=== PATIENT | female | born 1995 | race Caucasian/White ===

== ENCOUNTER 2021-01-03 16:27 | Emergency (ER) | payer SELFPAY ==
[2021-01-03 17:05] LABS: Urine Blood 2+ (NEG); Urine Glucose NEGATIVE (NEG); Urine Protein 1+ (NEG); Urine Specific Gravity 1.025 (1.005-1.030)
[2021-01-03 17:19] LABS: Absolute Lymphocytes (CBC) 2.1 K/uL (0.7-4.9); Basophils % 0.6 % (0-1.3); Hematocrit 40.9 % (36.0-45.0); Lymphocytes % 26.8 % (15.3-44.8); MPV 8.6 fL (7.6-11.3); RBC Red Blood Cell Count 4.54 M/uL (3.86-4.86)
[2021-01-03] MEDS ORDERED: NA CHLORIDE 0.9% 1,000 ML ONE (17:27)
[2021-01-03] MEDS ORDERED: FAMOTIDINE 20 MG/2 ML VIAL IV ONE (17:27)
[2021-01-03] MEDS ORDERED: ONDANSETRON 4 MG/2 ML VIAL ONE (17:27)
[2021-01-03 17:30] LABS: ALT/SGPT 32 U/L (12-78); AST/SGOT 20 U/L (15-37); Albumin 4.1 g/dL (3.4-5.0); Alkaline Phosphatase 79 U/L (45-117); BUN Blood Urea Nitrogen 14 mg/dL (7-18); Bicarbonate 28 mmol/L (21-32); Bilirubin Direct < 0.1 mg/dL (0-0.2); Bilirubin Total 0.2 mg/dL (0.2-1.0); Glucose Level 90 mg/dL (74-106); Lipase 311 U/L (73-393); Potassium 3.6 mmol/L (3.5-5.1); Protein, Total 8.2 g/dL (6.4-8.2); Sodium Level 142 mmol/L (136-145)
[2021-01-03 18:42] LABS: SARS-COV-2 RT PCR POSITIVE (NEGATIVE)
--- NOTE | 2021-01-03 18:50 | EDPHYS ---
Physician Documentation [facility] Name: Sabina Dumont Age: 25 yrs Sex: Female : 1995 Arrival Date: 01/03/2021 Time: 16:29 Bed 19 Private MD: ED Physician Milton Payne HPI: 01/03 16:55 This 25 yrs old Female presents to ER via Ambulatory with complaints of cp Nausea/Vomiting/Diarrhea, Vision Problem. 16:55 The patient presents to the emergency department with nausea, that is mild, vomiting, cp that is intermittent, 2 times today, diarrhea, that is intermittent. Onset: The symptoms/episode began/occurred today. Possible causes: unknown. Associated signs and symptoms: Pertinent positives: sweats. 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 - Social history:: Smoking status: Patient reports the use of cigarette tobacco products, Reported history of juuling and/or vaping. ROS: 17:00 Constitutional: Negative for body aches, chills, fever, poor PO intake. cp 17:00 Eyes: Negative for discharge, pain, vision loss. cp 17:00 ENT: Negative for drainage from ear(s), ear pain, sore throat, difficulty swallowing, difficulty handling secretions. 17:00 Cardiovascular: Negative for chest pain, edema, palpitations. 17:00 Respiratory: Negative for cough, shortness of breath, wheezing. 17:00 Abdomen/GI: Positive for nausea, vomiting, and diarrhea, Negative for abdominal pain, constipation, hematemesis, black/tarry stool. 17:00 Neuro: Negative for altered mental status, headache, numbness, syncope, weakness. 17:00 All other systems are negative. Exam: 17:10 Constitutional: The patient appears in no acute distress, alert, awake, comfortable, cp non-toxic, well developed, well nourished. 17:10 Head/Face: Normocephalic, atraumatic. cp 17:10 Eyes: Periorbital structures: appear normal, Conjunctiva: normal, no exudate, no injection, Sclera: no appreciated abnormality, Lids and lashes: appear normal, bilaterally. 17:10 ENT: External ear(s): are unremarkable, Nose: is normal, Mouth: Lips: moist, Oral mucosa: moist, Posterior pharynx: Airway: no evidence of obstruction, patent. 17:10 Neck: ROM/movement: is normal, is supple, without pain, no range of motions limitations. 17:10 Chest/axilla: Inspection: normal, Palpation: is normal, no crepitus, no tenderness. 17:10 Cardiovascular: Rate: tachycardic, Rhythm: regular. 17:10 Respiratory: the patient does not display signs of respiratory distress, Respirations: normal, no use of accessory muscles, no retractions, labored breathing, is not present, Breath sounds: are clear throughout, no decreased breath sounds, no stridor, no wheezing. 17:10 Abdomen/GI: Inspection: abdomen appears normal, Bowel sounds: active, all quadrants, Palpation: abdomen is soft and non-tender, in all quadrants. 17:10 Back: CVA tenderness, is absent. 17:10 Skin: no rash present. 17:10 Neuro: Orientation: to person, place \T\ time. Mentation: is normal, Motor: moves all fours, strength is normal. Vital Signs: 16:38 BP 127 / 85; Pulse 113; Resp 17; Temp 98.2; Pulse Ox 99% ; Weight 79.38 kg; Height 5 jl7 ft. 3 in. (160.02 cm); Pain 0/10; 17:56 BP 110 / 67; Pulse 78; Resp 17 S; Pulse Ox 100% on R/A; jd3 19:02 BP 101 / 54; Pulse 75; Resp 17 S; Pulse Ox 100% on R/A; jd3 16:38 Body Mass Index 31.00 (79.38 kg, 160.02 cm) jl7 MDM: 16:48 Patient medically screened. cp 17:00 Differential diagnosis: gastritis, viral gastroenteritis, gastroenteritis, dehydration, cp electrolyte abnormality. 18:48 Data reviewed: vital signs, nurses notes, lab test result(s), and as a result, I will cp discharge patient. 18:48 Counseling: I had a detailed discussion with the patient and/or guardian regarding: the cp historical points, exam findings, and any diagnostic results supporting the discharge/admit diagnosis, lab results, to return to the emergency department if symptoms worsen or persist or if there are any questions or concerns that arise at home. Response to treatment: the patient's symptoms have markedly improved after treatment, and as a result, I will discharge patient. 01/03 16:50 Order name: Basic Metabolic Panel; Complete Time: 17:37 cp 01/03 17:37 Interpretation: Normal except: CL 109; GFR 81. cp 01/03 16:50 Order name: CBC with Diff; Complete Time: 17:37 cp 01/03 16:50 Order name: Hepatic Function; Complete Time: 17:37 cp 01/03 16:50 Order name: Lipase; Complete Time: 17:37 cp 01/03 16:50 Order name: IV Saline Lock; Complete Time: 17:06 cp 01/03 16:50 Order name: Labs collected and sent; Complete Time: 17:06 cp 01/03 16:53 Order name: Urine Dipstick--Ancillary (enter results); Complete Time: 17:37 eb 01/03 16:53 Order name: Urine --Ancillary (enter results); Complete Time: 17:37 eb 01/03 18:42 Order name: COVID-19/FLU A+B; Complete Time: 18:48 EDMS 01/03 16:50 Order name: Urine Test (obtain specimen); Complete Time: 16:53 cp 01/03 16:50 Order name: Urine Dipstick-Ancillary (obtain specimen); Complete Time: 16:53 cp 01/03 17:38 Order name: PO challenge; Complete Time: 17:47 cp Administered Medications: 17:19 Drug: Pepcid 20 mg Route: IVP; Site: right antecubital; jd3 18:00 Follow up: Response: No adverse reaction jd3 17:19 Drug: Zofran (Ondansetron) 4 mg Route: IVP; Site: right antecubital; jd3 18:00 Follow up: Response: No adverse reaction jd3 17:19 Drug: NS 0.9% 1000 ml Route: IV; Rate: 1 bolus; Site: right antecubital; jd3 18:00 Follow up: Response: No adverse reaction; IV Status: Completed infusion jd3 Disposition: 19:00 Chart complete. cp 01/04 07:01 Co-signature as Attending Physician, Milton Payne MD. rn Disposition: 01/03/21 18:49 Discharged to Home. Impression: Nausea and vomiting, Diarrhea, unspecified, Coronavirus infection, unspecified. - Condition is Stable. - Discharge Instructions: Food Choices to Help Relieve Diarrhea, Adult, Diarrhea, Adult, Nausea and Vomiting, Adult, COVID-19. - Prescriptions for Zofran 4 mg Oral Tablet - take 1 tablet by ORAL route every 12 hours As needed; 20 tablet. - Medication Reconciliation Form, Thank You Letter, Antibiotic Education, Prescription Opioid Use, Work release form form. - Follow up: Private Physician; When: 1 - 2 days; Reason: Worsening of condition. - Problem is new. - Symptoms have improved. 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 EDGA EDMS 17:37 16:51 Influenza Screen (A \T\ B)+BA.LAB.BRZ ordered. EDGA EDMS 18:39 18:39 Data reviewed: vital signs, nurses notes, lab test result(s), and as a result, I will discharge patient, cp 19:31 18:49 01/03/2021 18:49 Discharged to Home. Impression: Nausea and vomiting; Diarrhea, ll2 unspecified; Coronavirus infection, unspecified. Condition is Stable. Discharge Instructions: COVID-19. Prescriptions for Zofran 4 mg Oral Tablet - take 1 tablet by ORAL route every 12 hours As needed; 20 tablet. and Forms are Medication Reconciliation Form, Thank You Letter, Antibiotic Education, Prescription Opioid Use. Follow up: Private Physician; When: 1 - 2 days; Reason: Worsening of condition. Problem is new. Symptoms have improved. cp
--- NOTE | 2021-01-03 18:50 | ER ---
Nurse's Notes [facility] Name: Sabina Dumont Age: 25 yrs Sex: Female : 1995 Arrival Date: 01/03/2021 Time: 16:29 Bed 19 Private MD: Diagnosis: Nausea and vomiting;Diarrhea, unspecified;Coronavirus infection, unspecified Presentation: 01/03 16:38 Chief complaint: Patient states: N/V/D x 2 hours, reports leaving a tampon in from 1500 jl7 Tuesday until 0830 this morning, denies abdominal pain. Coronavirus screen: Client denies travel out of the [place] in the last 14 days. diarrhea, vomiting. Client presents with at least one sign or symptom that may indicate coronavirus-19. Standard/surgical mask placed on the client. Provider contacted for isolation considerations. Ebola Screen: No symptoms or risks identified at this time. Initial Sepsis Screen: Does the patient meet any 2 criteria? No. Patient's initial sepsis screen is negative. Does the patient have a suspected source of infection? No. Patient's initial sepsis screen is negative. Risk Assessment: Do you want to hurt yourself or someone else? Patient reports no desire to harm self or others. Onset of symptoms was January 03, 2021 at 15:00. Care prior to arrival: None. 16:38 Method Of Arrival: Ambulatory [facility] 16:38 Acuity: HENRY 3 jl7 Triage Assessment: 16:41 General: Appears in no apparent distress. uncomfortable, Behavior is cooperative, jl7 anxious. Pain: Denies pain. GI: Reports diarrhea, nausea, vomiting. 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 - Social history:: Smoking status: Patient reports the use of cigarette tobacco products, Reported history of juuling and/or vaping. Screenin:20 Abuse screen: Denies threats or abuse. Nutritional screening: No deficits noted. jd3 Tuberculosis screening: No symptoms or risk factors identified. Fall Risk Ambulatory Aid- None/Bed Rest/Nurse Assist (0 pts). Gait- Normal/Bed Rest/Wheelchair (0 pts) Mental Status- Oriented to own ability (0 pts). Total Boudreaux Fall Scale indicates No Risk (0-24 pts). Assessment: 16:40 General: Appears in no apparent distress. uncomfortable, Behavior is calm, cooperative, jd3 appropriate for age. Pain: Complains of pain in abdomen Quality of pain is described as aching. Neuro: Level of Consciousness is awake, alert, obeys commands, Oriented to person, place, time, situation. Cardiovascular: Denies chest pain, Capillary refill < 3 seconds Patient's skin is warm and dry. Respiratory: Airway is patent Respiratory effort is even, unlabored, Respiratory pattern is regular, symmetrical, Denies cough, shortness of breath. GI: Abdomen is flat, non-distended, Abd is soft and non tender X 4 quads. Reports diarrhea, nausea. : No signs and/or symptoms were reported regarding the genitourinary system. Denies burning with urination, cramping discharge. EENT: No signs and/or symptoms were reported regarding the EENT system. Derm: Skin is intact, Skin is dry, Skin is normal, Skin temperature is warm. Musculoskeletal: Circulation, motion, and sensation intact. Range of motion: intact in all extremities. 17:56 Reassessment: Patient appears in no apparent distress at this time. Patient and/or jd3 family updated on plan of care and expected duration. Pain level reassessed. Patient is alert, oriented x 3, equal unlabored respirations, skin warm/dry/pink. pt tolerating PO fluids Patient states feeling better. 19:02 Reassessment: Patient appears in no apparent distress at this time. Patient and/or jd3 family updated on plan of care and expected duration. Pain level reassessed. Patient is alert, oriented x 3, equal unlabored respirations, skin warm/dry/pink. Patient states feeling better. Vital Signs: 16:38 BP 127 / 85; Pulse 113; Resp 17; Temp 98.2; Pulse Ox 99% ; Weight 79.38 kg; Height 5 jl7 ft. 3 in. (160.02 cm); Pain 0/10; 17:56 BP 110 / 67; Pulse 78; Resp 17 S; Pulse Ox 100% on R/A; jd3 19:02 BP 101 / 54; Pulse 75; Resp 17 S; Pulse Ox 100% on R/A; jd3 16:38 Body Mass Index 31.00 (79.38 kg, 160.02 cm) jl7 ED Course: 16:29 Patient arrived in ED. ag5 16:38 Cam Moon, RN is Primary Nurse. jd3 16:40 Triage completed. jl7 16:41 Nikunj Fernandez PA is PHCP. cp 16:41 Milton Payne MD is Attending Physician. cp 16:41 Arm band placed on right wrist. jl7 17:00 No provider procedures requiring assistance completed. Inserted saline lock: 20 gauge jd3 in right antecubital area, using aseptic technique. Blood collected. 17:20 Patient has correct armband on for positive identification. Placed in gown. Bed in low jd3 position. Call light in reach. Side rails up X 1. Pulse ox on. NIBP on. 19:30 IV discontinued, intact, bleeding controlled, No redness/swelling at site. Pressure jd3 dressing applied. Administered Medications: 17:19 Drug: Pepcid 20 mg Route: IVP; Site: right antecubital; jd3 18:00 Follow up: Response: No adverse reaction jd3 17:19 Drug: Zofran (Ondansetron) 4 mg Route: IVP; Site: right antecubital; jd3 18:00 Follow up: Response: No adverse reaction jd3 17:19 Drug: NS 0.9% 1000 ml Route: IV; Rate: 1 bolus; Site: right antecubital; jd3 18:00 Follow up: Response: No adverse reaction; IV Status: Completed infusion jd3 Outcome: 18:49 Discharge ordered by . cp 19:30 Discharged to home ambulatory, with family. jd3 19:30 Condition: stable 19:30 Discharge instructions given to patient, Instructed on discharge instructions, follow up and referral plans. medication usage, Demonstrated understanding of instructions, follow-up care, medications, Prescriptions given X 1. 19:31 Patient left the ED. ll2 Signatures: Nikunj Fernandez PA PA Gillian Lamas RN RN jl7 Cam Moon, YUVAL BARAKAT jd3 Gianluca Melton ag5 Kristine Pearson RN RN ll2
[2021-01-03 19:38] VITALS: TEMP 98.2
[2021-01-03 19:40] VITALS: O2SAT 100
[2021-01-03 19:41] VITALS: BP 101/54
== END 2021-01-03 19:31 | disposition home or self-care (01) ==
LOC: ER 16:27
DX: U07.1 COVID-19 (principal); R19.7 Diarrhea, unspecified; Z72.0 Tobacco use
CPT/HCPCS: 0240U; 36415; 80048; 80076; 81003; 81025; 83690; 85025; 96361; 96374; 96375; 99284; J2405; J7030